=== PATIENT | male | born 1995 | race Two or more races ===

== ENCOUNTER 2018-03-28 22:21 | Emergency (ER) | payer SELFPAY ==
[~2018-03-28] VITALS: Ht 154.9 cm; Wt 57.4 kg
[2018-03-28 23:49] VITALS: BP 134/90
== END 2018-03-28 23:50 | disposition home or self-care (01) ==
LOC: EME 22:21
DX: S01.81XA Laceration without foreign body of other part of head, initial encounter (principal); Y04.0XXA Assault by unarmed brawl or fight, initial encounter; Z23 Encounter for immunization; E78.5 Hyperlipidemia, unspecified; I10 Essential (primary) hypertension; F79 Unspecified intellectual disabilities; F84.0 Autistic disorder; Z88.8 Allergy status to other drugs, medicaments and biological substances
CPT/HCPCS: 99281; 99284